=== PATIENT | female | born 1960 | race Caucasian/White ===

== ENCOUNTER 2017-11-19 09:52 | Emergency (ER) | payer OTHER ==
[~2017-11-19] VITALS: Ht 177.8 cm; Wt 64.9 kg
[~2017-11-19 09:52] MED LIST: CENTRUM COMPLE1 EACH PO; CIPROFLOXACIN500 M1 PO; COLACE 100 MG100 MG PO; COUMADIN 5 MG TA5 M1 PO; ENOXAPARIN40 MG/0.1 SUBQ; ENOXAPARIN60 MG/0.1 SUBQ; FERRO-TIME325 MG PO; FERROUS SULFATE PO; IBUPROFEN200 M2 PO; K-DUR 20 MEQ T20 MEQ PO; MAGNESIUM OXID400 MG PO; NOHOMEMEDICATIONS; NORCO 5-325 TA1 EACH PO; ONE DAILY MULT1 EAC2 PO; OS-CAL 500+D C1 EACH PO; PERCOCET 10-321 EACH PO; PHENERGAN 25 MG25 M1 PO; PHENERGAN50 MG RC; POTASSIUM GLUCO99 M1 PO; POTASSIUM20 PO; PRENATAL PO; TRAMADOL 50 MG50 MG PO; TRINATE TABLET1 TAB PO; UNICOMPLEX M TA1 TA1 PO; VITAMIN B-1100 M1 PO; XARELTO20 MG PO; ZOFRAN ODT4 MG PO; ZOFRAN4 MG PO
== END 2017-11-19 11:02 | disposition home or self-care (01) ==
LOC: ER 09:52
DX: S50.312A Abrasion of left elbow, initial encounter (principal); F10.129 Alcohol abuse with intoxication, unspecified; Z86.73 Personal history of transient ischemic attack (TIA), and cerebral infarction without residual deficits; Y04.8XXA Assault by other bodily force, initial encounter; Y92.89 Other specified places as the place of occurrence of the external cause; Y93.89 Activity, other specified; Y99.8 Other external cause status

== ENCOUNTER 2018-01-16 20:07 | Emergency (ER) | payer OTHER ==
[~2018-01-16] VITALS: Ht 175.3 cm; Wt 62.6 kg
== END 2018-01-17 00:08 | disposition home or self-care (01) ==
LOC: ER 20:07
DX: F10.129 Alcohol abuse with intoxication, unspecified (principal); R11.10 Vomiting, unspecified; K70.31 Alcoholic cirrhosis of liver with ascites; Z86.718 Personal history of other venous thrombosis and embolism; Z86.2 Personal history of diseases of the blood and blood-forming organs and certain disorders involving the immune mechanism; Z86.73 Personal history of transient ischemic attack (TIA), and cerebral infarction without residual deficits

== ENCOUNTER 2018-04-22 00:33 | Emergency (ER) | payer OTHER ==
[~2018-04-22] VITALS: Ht 175.3 cm; Wt 63.5 kg
[2018-04-22 01:01] VITALS: BP 122/88
== END 2018-04-22 01:02 | disposition home or self-care (01) ==
LOC: ER 00:33
DX: F10.129 Alcohol abuse with intoxication, unspecified (principal); K70.31 Alcoholic cirrhosis of liver with ascites; Z86.718 Personal history of other venous thrombosis and embolism; Z86.2 Personal history of diseases of the blood and blood-forming organs and certain disorders involving the immune mechanism

== ENCOUNTER 2018-07-02 00:56 | Emergency (ER) | payer OTHER ==
[~2018-07-02] VITALS: Ht 175.3 cm; Wt 61.2 kg
[2018-07-02 01:54] VITALS: BP 130/89
== END 2018-07-02 01:55 | disposition home or self-care (01) ==
LOC: ER 00:56
DX: F10.129 Alcohol abuse with intoxication, unspecified (principal); Z59.0 Homelessness; Z86.718 Personal history of other venous thrombosis and embolism; Z86.2 Personal history of diseases of the blood and blood-forming organs and certain disorders involving the immune mechanism; Z86.73 Personal history of transient ischemic attack (TIA), and cerebral infarction without residual deficits; X31.XXXA Exposure to excessive natural cold, initial encounter

== ENCOUNTER 2018-09-03 21:40 | Emergency (ER) | payer OTHER ==
[~2018-09-03] VITALS: Ht 175.3 cm; Wt 61.2 kg
[2018-09-04 03:14] VITALS: BP 106/56
== END 2018-09-04 03:01 | disposition home or self-care (01) ==
LOC: ER 21:40
DX: F10.129 Alcohol abuse with intoxication, unspecified (principal)

== ENCOUNTER 2018-09-30 02:41 | Emergency (ER) | payer OTHER ==
[~2018-09-30] VITALS: Ht 175.3 cm; Wt 62.6 kg
[2018-09-30 06:06] VITALS: BP 104/65
== END 2018-09-30 06:06 | disposition home or self-care (01) ==
LOC: ER 02:41
DX: F10.129 Alcohol abuse with intoxication, unspecified (principal); Z86.718 Personal history of other venous thrombosis and embolism; Z86.2 Personal history of diseases of the blood and blood-forming organs and certain disorders involving the immune mechanism

== ENCOUNTER 2018-11-07 22:57 | Emergency (ER) | payer OTHER ==
[~2018-11-07] VITALS: Ht 180.3 cm; Wt 81.7 kg
[2018-11-08 05:54] VITALS: BP 98/69
== END 2018-11-08 05:54 | disposition home or self-care (01) ==
LOC: ER 22:57
DX: S01.01XA Laceration without foreign body of scalp, initial encounter (principal); F10.129 Alcohol abuse with intoxication, unspecified; E44.1 Mild protein-calorie malnutrition; Z85.6 Personal history of leukemia; Z86.73 Personal history of transient ischemic attack (TIA), and cerebral infarction without residual deficits; Z86.718 Personal history of other venous thrombosis and embolism; W01.0XXA Fall on same level from slipping, tripping and stumbling without subsequent striking against object, initial encounter; Y93.89 Activity, other specified; Y92.89 Other specified places as the place of occurrence of the external cause; Y99.8 Other external cause status

== ENCOUNTER 2018-11-14 23:28 | Emergency (ER) | payer OTHER ==
[~2018-11-14] VITALS: Ht 170.2 cm; Wt 59.9 kg
[2018-11-15 01:35] VITALS: BP 105/72
== END 2018-11-15 01:37 | disposition home or self-care (01) ==
LOC: ER 23:28
DX: F10.129 Alcohol abuse with intoxication, unspecified (principal); S01.01XD Laceration without foreign body of scalp, subsequent encounter; X58.XXXD Exposure to other specified factors, subsequent encounter

== ENCOUNTER 2018-12-01 22:34 | Emergency (ER) | payer OTHER ==
[~2018-12-01] VITALS: Ht 170.2 cm; Wt 59.0 kg
[2018-12-01 22:39] VITALS: BP 90/51
== END 2018-12-01 23:00 | disposition home or self-care (01) ==
LOC: ER 22:34
DX: F10.129 Alcohol abuse with intoxication, unspecified (principal)

== ENCOUNTER 2018-12-06 22:37 | Emergency (ER) | payer OTHER ==
[~2018-12-06] VITALS: Ht 172.7 cm; Wt 63.5 kg
[2018-12-07 01:54] VITALS: BP 81/45
== END 2018-12-07 01:50 | disposition home or self-care (01) ==
LOC: ER 22:37
DX: F10.129 Alcohol abuse with intoxication, unspecified (principal); Z86.718 Personal history of other venous thrombosis and embolism; Z86.2 Personal history of diseases of the blood and blood-forming organs and certain disorders involving the immune mechanism; Z86.73 Personal history of transient ischemic attack (TIA), and cerebral infarction without residual deficits

== ENCOUNTER 2018-12-24 15:33 | Emergency (ER) | payer OTHER ==
[~2018-12-24] VITALS: Ht 170.2 cm; Wt 58.1 kg
[2018-12-24 18:02] VITALS: BP 120/66
== END 2018-12-24 18:03 | disposition home or self-care (01) ==
LOC: ER 15:33
DX: F10.129 Alcohol abuse with intoxication, unspecified (principal); Z86.718 Personal history of other venous thrombosis and embolism; Z86.711 Personal history of pulmonary embolism

== ENCOUNTER 2019-03-07 17:57 | Emergency (ER) | payer OTHER ==
[~2019-03-07] VITALS: Ht 170.2 cm; Wt 58.1 kg
--- NOTE | ~2019-03-07 | EMS ---
[address] [address] EMS Patient Care Report Name: JAQUELINE MENDES Room #: REG IRENE Aj#: [id number] Admission: 03/07/19 Attend Phys: Discharge: Date of : 62 Report #: [id number] THIS REPORT FOR: //name// Report Transmitted: 03/07/2019 17:07 EMS Care Summary [place], [place] Incident [id number] @ 03/07/2019 17:28 Incident Location [address] [place] [address] Patient JAQUELINE MENDES Female, 59 Years 4750-58-52 Patient Address HOMELESS Patient History Alcohol Abuse, Patient Allergies No known allergies, Patient Medications None Reported, Chief Complaint INTOXICATION Disposition Transported No Lights/[place] Dispatch Reason Unknown Problem/Person Down Transported To [facility] Narrative M28 ARRIVES TO FIND 59 Y/O F PT, INTOXICATED. ASSESSMENTS AND TREATMENTS NOTED. PT AMBULATORY AND MOVES TO COT. PT MOVED TO AMBULANCE. PT TRANSPORTED. M28 ARRIVES AT DESTINATION. PT MOVED TO ROOM IN ED. PT SLIDES FROM COT TO BED IN ROOM. PT CARE TRANSFERRED. M28 RETURNS TO SERVICE. [address] [address] EMS Patient Care Report Name: JAQUELINE MENDES Room #: REG IRENE Aj#: [id number] Admission: 03/07/19 Attend Phys: Discharge: Date of : 62 Report #: [id number] Initial Vitals @17:48P: 84,BP: 112/69,CO: 4,SpO2: 97, @17:40P: 91,R: 18,BP: 112/99,Pain: 0/10,GCS: 15,Glucose: 107,SpO2: 96,Revised Trauma: 12, Assessments @17:41MENTAL:No Abnormalities,SKIN:No Abnormalities,HEENT:Head/Face: No Abnormalities,Eyes: No Abnormalities,Neck/Airway: No Abnormalities,LUNG SOUNDS:General: No Abnormalities,Left Upper: No Abnormalities,Right Upper: No Abnormalities,Left Lower: No Abnormalities,Right Lower: No Abnormalities,ABDOMEN:General: No Abnormalities,Left Upper: No Abnormalities,Right Upper: No Abnormalities,Left Lower: No Abnormalities,Right Lower: No Abnormalities,PELVIS//GI:No Abnormalities,EXTREMITIES:Left Arm: No Abnormalities,Right Arm: No Abnormalities,Left Leg: No Abnormalities,Right Leg: No Abnormalities,PULSE:NEURO:No Abnormalities,@17:36MENTAL:No Abnormalities,SKIN:No Abnormalities,HEENT:Head/Face: No Abnormalities,Eyes: No Abnormalities,Neck/Airway: No Abnormalities,LUNG SOUNDS:General: No Abnormalities,Left Upper: No Abnormalities,Right Upper: No Abnormalities,Left Lower: No Abnormalities,Right Lower: No Abnormalities,ABDOMEN:General: No Abnormalities,Left Upper: No Abnormalities,Right Upper: No Abnormalities,Left Lower: No Abnormalities,Right Lower: No Abnormalities,PELVIS//GI:No Abnormalities,EXTREMITIES:Left Arm: No Abnormalities,Right Arm: No Abnormalities,Left Leg: No Abnormalities,Right Leg: No Abnormalities,PULSE:NEURO:No Abnormalities, Impression Overdose - Alcohol Procedures @17:36ALS AssessmentResponse: UnchangedSucceeded@17:42Saline Lock 150cc (18 ga) Site: Hand-LeftResponse: UnchangedSucceeded Timeline 17:26,Call Received 17:26,Dispatch Notified 17:28,Dispatched 17:28,En Route 17:35,On Scene 17:36,At Patient 17:36,ALS Assessment,Response: UnchangedSucceeded, 17:40,BP: 112/99 M,PULSE: 91,RR: 18 R,SPO2: 96 Ox,ETCO2: ,B,PAIN: 0,GCS: 15, 17:42,Saline Lock 150cc 18 ga Site: Hand-Left,Response: UnchangedSucceeded, 17:48,BP: 112/69 M,PULSE: 84,RR: R,SPO2: 97 Ox,ETCO2: ,BG: ,PAIN: ,GCS: , 17:48,Depart Scene [address] [address] EMS Patient Care Report Name: JAQUELINE MENDES HONG Room #: REG ToñoR.#: [id number] Admission: 03/07/19 Attend Phys: Discharge: Date of : 62 Report #: [id number] 17:59,At Destination 18:05,Call Closed Disclaimer v1.1 Copyright 2019 [employer] This EMS Care Summary contains data elements from the applicable legal record (which may be displayed differently). It is designed to provide pertinent information for the following purposes: continuity of care, clinical quality, and state data reporting. The complete legal record is available to ED staff and administrators of the receiving hospital in ES's Patient Tracker. All data is provided "as is."
[2019-03-08 02:56] VITALS: BP 132/66
== END 2019-03-08 03:55 | disposition home or self-care (01) ==
LOC: ER 17:57
DX: F10.129 Alcohol abuse with intoxication, unspecified (principal); K70.30 Alcoholic cirrhosis of liver without ascites; Z86.711 Personal history of pulmonary embolism; Z86.718 Personal history of other venous thrombosis and embolism; Z86.2 Personal history of diseases of the blood and blood-forming organs and certain disorders involving the immune mechanism; Z86.73 Personal history of transient ischemic attack (TIA), and cerebral infarction without residual deficits; Y90.9 Presence of alcohol in blood, level not specified

== ENCOUNTER 2019-03-26 22:21 | Emergency (ER) | payer OTHER ==
[~2019-03-26] VITALS: Ht 170.2 cm; Wt 77.1 kg
--- NOTE | ~2019-03-26 | EMS ---
[place] [address] EMS Patient Care Report Name: JAQUELINE MENDES Room #: REG Jean Marie#: [id number] Admission: 03/26/19 Attend Phys: Discharge: Date of : 62 Report #: [id number] THIS REPORT FOR: //name// Report Transmitted: 03/26/2019 21:35 EMS Care Summary [place], [place] Incident [id number] @ 03/26/2019 21:38 Incident Location [address] [place] [address] Patient JAQUELINE MENDES Female, 59 Years 1960 [place] [address] Patient History Alcohol Abuse, Patient Allergies No known allergies, Patient Medications None Reported, Chief Complaint INTOXICATED Disposition Transported No Lights/[place] Dispatch Reason Overdose/Poisoning/Ingestion Transported To [facility] Narrative PATIENT FOUND SITTING AT THE BUS STOP UNABLE TO AMBULATE ON HER OWN. PATIENT IS ALERT, APPROPRIATE, SPEAKING IN FULL SENTENCES. PATIENT BECOMING BELLIGERENT WHEN EMS WOULD NOT ALLOW HER TO BRING HER TRASH ONTO THE AMBULANCE. HER SUIT CASE WAS LOADED ONTO THE UNIT . PATIENT ASSISTED TO [place] [address] EMS Patient Care Report Name: JAQUELINE MENDES Room #: REG IRENE Aj#: [id number] Admission: 03/26/19 Attend Phys: Discharge: Date of : 62 Report #: [id number] PATIENT TRANSFERRED TO RN ROOM 2 UPON ARRIVAL Initial Vitals @22:04P: 47,SpO2: 98, @22:08P: 67,R: 18,BP: 133/86,Pain: 0/10,GCS: 15,CO: 0,SpO2: 96,Revised Trauma: 12, @22:04P: 43,R: 18,BP: 157/103,Pain: 0/10,GCS: 14,Glucose: 68,SpO2: 96,Revised Trauma: 12, Assessments @21:52MENTAL:Person Oriented,Time Oriented,Place Oriented,Event Oriented,SKIN:HEENT:Head/Face: No Abnormalities,Eyes: No Abnormalities,Neck/Airway: No Abnormalities,LUNG SOUNDS:ABDOMEN:PELVIS//GI:EXTREMITIES:PULSE:NEURO: Impression Alcohol use Procedures @21:53ALS AssessmentResponse: Unchanged Timeline 21:37,Call Received 21:37,Dispatch Notified 21:38,Dispatched 21:38,En Route 21:51,On Scene 21:51,At Patient 21:53,ALS Assessment,Response: Unchanged 22:04,BP: 157/103 M,PULSE: 43,RR: 18 R,SPO2: 96 Ox,ETCO2: ,B,PAIN: 0,GCS: 14, 22:04,BP: / M,PULSE: 47,RR: R,SPO2: 98 Ox,ETCO2: ,BG: ,PAIN: ,GCS: , 22:06,Depart Scene 22:08,BP: 133/86 M,PULSE: 67,RR: 18 R,SPO2: 96 Ox,ETCO2: ,BG: ,PAIN: 0,GCS: 15, 22:13,At Destination 22:30,Call Closed Disclaimer v1.1 Copyright 2019 [employer] This EMS Care Summary contains data elements from the applicable legal record (which may be displayed differently). It is designed to provide pertinent information for the following purposes: continuity of care, clinical quality, and state data reporting. The complete legal record is available to ED staff and administrators of the receiving hospital in [employer]'s Patient Tracker. All data is provided "as is."
[2019-03-27 05:43] VITALS: BP 136/88
== END 2019-03-27 05:44 | disposition home or self-care (01) ==
LOC: ER 22:21
DX: F10.129 Alcohol abuse with intoxication, unspecified (principal); Z86.2 Personal history of diseases of the blood and blood-forming organs and certain disorders involving the immune mechanism; Z86.73 Personal history of transient ischemic attack (TIA), and cerebral infarction without residual deficits; Z85.6 Personal history of leukemia

== ENCOUNTER 2019-04-04 18:03 | Emergency (ER) | payer OTHER ==
[~2019-04-04] VITALS: Ht 165.1 cm; Wt 68.0 kg
[2019-04-04 22:28] VITALS: BP 87/43
== END 2019-04-04 23:19 | disposition home or self-care (01) ==
LOC: ER 18:03
DX: F10.129 Alcohol abuse with intoxication, unspecified (principal); Z86.2 Personal history of diseases of the blood and blood-forming organs and certain disorders involving the immune mechanism; Z90.89 Acquired absence of other organs; Z86.018 Personal history of other benign neoplasm

== ENCOUNTER 2019-11-14 02:33 | Emergency (ER) | payer OTHER ==
[~2019-11-14] VITALS: Ht 170.2 cm; Wt 63.5 kg
[2019-11-14 07:18] VITALS: BP 118/61
== END 2019-11-14 07:18 | disposition home or self-care (01) ==
LOC: ER 02:33
DX: F10.129 Alcohol abuse with intoxication, unspecified (principal); Z86.73 Personal history of transient ischemic attack (TIA), and cerebral infarction without residual deficits; Y90.9 Presence of alcohol in blood, level not specified

== ENCOUNTER 2019-11-19 11:35 | Emergency (ER) | payer OTHER ==
[~2019-11-19] VITALS: Ht 172.7 cm; Wt 63.5 kg
[2019-11-19] MEDS ORDERED: ASPIR 8181 M1 PO (11:42)
[2019-11-19 12:45] VITALS: BP 106/83
--- NOTE | 2019-11-19 14:08 | EKG ---
[facility] [place] [address] ELECTROCARDIOGRAM REPORT Name: JAQUELINE MENDES [id number] Admission: 11/19/19 Attend Phys: Discharge: 11/19/19 Date of : 62 Report #: [id number] THIS REPORT FOR: cc: Rehan Denise MD, Neal A. MD Couchonnal, Luis F. MD ~ THIS REPORT FOR: //name// [facility] ED Test Date: 2019-11-19 Test Time: 11:44:40 Pat Name: JAQUELINE MENDES Department: Room: Gender: F Physical Damage Appraiser: [facility] : 1960 Requested By: Korina Hernandez Order Number: [id number] : Nadeem Fontenot Measurements Intervals [place] Rate: 74 P: -30 NH: 116 QRS: -1 QRSD: 89 T: 62 QT: 382 QTc: 424 Interpretive Statements Sinus rhythm Borderline short NH interval RSR' in V1 or V2, probably normal variant Compared to ECG 08/02/2016 09:33:54 RSR' in V1 or V2 now present Electronically Signed On 11-19-2019 14:07:56 CDT by Nadeem Fontenot [email or web address] <ELECTRONICALLY SIGNED> By: Nadeem Fontenot MD 11/19/19 1407 1144 1144 Nadeem Fontenot MD /EPI
== END 2019-11-19 12:45 | disposition home or self-care (01) ==
LOC: ER 11:35
DX: F10.129 Alcohol abuse with intoxication, unspecified (principal); I48.91 Unspecified atrial fibrillation; Z71.1 Person with feared health complaint in whom no diagnosis is made; Z79.82 Long term (current) use of aspirin; Z86.718 Personal history of other venous thrombosis and embolism; Z86.711 Personal history of pulmonary embolism; Z86.73 Personal history of transient ischemic attack (TIA), and cerebral infarction without residual deficits; Y90.9 Presence of alcohol in blood, level not specified

== ENCOUNTER 2019-11-25 02:20 | Emergency (ER) | payer OTHER ==
[~2019-11-25] VITALS: Ht 170.2 cm; Wt 55.8 kg
[~2019-11-25 02:20] MED LIST changes: +ASPIR 8181 M1 PO
[2019-11-25 08:17] VITALS: BP 95/68
== END 2019-11-25 08:17 | disposition home or self-care (01) ==
LOC: ER 02:20
DX: F10.129 Alcohol abuse with intoxication, unspecified (principal); I48.91 Unspecified atrial fibrillation; Z86.718 Personal history of other venous thrombosis and embolism; Z86.73 Personal history of transient ischemic attack (TIA), and cerebral infarction without residual deficits; Z79.82 Long term (current) use of aspirin

== ENCOUNTER 2019-12-02 07:19 | Emergency (ER) | payer OTHER ==
[~2019-12-02] VITALS: Ht 170.2 cm; Wt 55.8 kg
[2019-12-02 07:19] VITALS: BP 124/82
== END 2019-12-02 07:57 | disposition home or self-care (01) ==
LOC: ER 07:19
DX: F10.920 Alcohol use, unspecified with intoxication, uncomplicated (principal); R44.1 Visual hallucinations; Z59.9 Problem related to housing and economic circumstances, unspecified; Z86.718 Personal history of other venous thrombosis and embolism; Z86.73 Personal history of transient ischemic attack (TIA), and cerebral infarction without residual deficits; Z85.72 Personal history of non-Hodgkin lymphomas; Z85.6 Personal history of leukemia; Z79.82 Long term (current) use of aspirin

== ENCOUNTER 2019-12-25 16:28 | Emergency (ER) | payer OTHER ==
[~2019-12-25] VITALS: Ht 170.2 cm; Wt 63.5 kg
[2019-12-25 17:16] LABS: ABSOLUTE NEUTROPHILS 2.6 thou/uL (1.4-8.2); EOSINOPHILS 1.9 % (0.0-3.0); HEMATOCRIT 38.3 % (37.0-47.0); HEMOGLOBIN 13.1 gm/dL (12.0-15.0); LYMPHOCYTES 36.1 % (24.0-44.0); MCH 31.2 pg (26.0-34.0); MCHC 34.2 g/dL (28.0-37.0); MCV 91.3 fL (80.0-100.0); MONOCYTES 11.5 % (1.0-8.0); PLATELET COUNT 175 thou/uL (150-400); POLYS 49.5 % (36.0-66.0); RDW 16.1 % (10.5-14.5); WBC 5.3 thou/uL (4.0-11.0)
[2019-12-25 17:27] LABS: ANION GAP 12 mmol/L (7-16); BUN 5 mg/dL (7-18); CALCIUM 8.9 mg/dL (8.5-10.1); CHLORIDE 102 mmol/L (98-107); CO2 27 mmol/L (21-32); CREATININE 1.2 mg/dL (0.6-1.0); GLUCOSE 88 mg/dL (74-106); POTASSIUM 3.3 mmol/L (3.5-5.1); SODIUM 141 mmol/L (136-145)
[2019-12-25 17:35] LABS: ALBUMIN 3.8 g/dL (3.4-5.0); SALICYLATE < 2.8 mg/dL (2.8-20.0); SGOT 77 U/L (15-37); SGPT 41 U/L (30-65); TOTAL BILIRUBIN 0.3 mg/dL (0.2-1.0); TOTAL PROTEIN 7.8 g/dL (6.4-8.2)
[2019-12-25 19:27] LABS: URINE BILIRUBIN NEGATIVE (Negative); URINE BLOOD NEGATIVE (Negative); URINE CLARITY CLEAR; URINE COLOR YELLOW; URINE GLUCOSE-RANDOM* NEGATIVE (Negative); URINE KETONES NEGATIVE (Negative); URINE LEUKOCYTES-REFLEX NEGATIVE (Negative); URINE NITRITE-REFLEX NEGATIVE (Negative); URINE PROTEIN (DIPSTICK) NEGATIVE (Negative); URINE SPECIFIC GRAVITY <= 1.005 (1.005-1.035); URINE UROBILINOGEN 0.2 E.U./dl (0.2-1.0)
[2019-12-25 19:34] LABS: AMP/METHAMP Negative (Negative); BARBITURATES Negative (Negative); BENZODIAZEPINES Negative (Negative); COCAINE Negative (Negative); METHADONE Negative (Negative); OPIATES Negative (Negative); PCP Negative (Negative)
[2019-12-25 21:51] VITALS: BP 100/62
== END 2019-12-25 21:42 | disposition home or self-care (01) ==
LOC: ER 16:28
PROVIDERS: Physician Assistant
DX: F10.120 Alcohol abuse with intoxication, uncomplicated (principal); F32.9 Major depressive disorder, single episode, unspecified; R45.851 Suicidal ideations; Z86.718 Personal history of other venous thrombosis and embolism; Z86.711 Personal history of pulmonary embolism; Z86.73 Personal history of transient ischemic attack (TIA), and cerebral infarction without residual deficits; Y90.8 Blood alcohol level of 240 mg/100 ml or more

== ENCOUNTER 2020-01-25 14:16 | Emergency (ER) | payer OTHER ==
[~2020-01-25] VITALS: Ht 170.2 cm; Wt 63.5 kg
[2020-01-25 22:48] VITALS: BP 127/77
== END 2020-01-25 23:02 | disposition home or self-care (01) ==
LOC: ER 14:16
DX: F10.920 Alcohol use, unspecified with intoxication, uncomplicated (principal); E46 Unspecified protein-calorie malnutrition; Z59.0 Homelessness; Z68.21 Body mass index [BMI] 21.0-21.9, adult; Z86.73 Personal history of transient ischemic attack (TIA), and cerebral infarction without residual deficits; Z86.718 Personal history of other venous thrombosis and embolism; Z86.711 Personal history of pulmonary embolism

== ENCOUNTER 2020-02-08 20:20 | Emergency (ER) | payer OTHER ==
[~2020-02-08] VITALS: Ht 170.2 cm; Wt 68.0 kg
[2020-02-09 06:11] VITALS: BP 120/64
== END 2020-02-09 06:16 | disposition home or self-care (01) ==
LOC: ER 20:20
DX: F10.121 Alcohol abuse with intoxication delirium (principal); Z86.2 Personal history of diseases of the blood and blood-forming organs and certain disorders involving the immune mechanism; Z86.73 Personal history of transient ischemic attack (TIA), and cerebral infarction without residual deficits; Y90.9 Presence of alcohol in blood, level not specified

== ENCOUNTER 2020-04-12 13:38 | Emergency (ER) | payer OTHER ==
[~2020-04-12] VITALS: Ht 170.2 cm; Wt 68.0 kg
[2020-04-12 17:15] VITALS: BP 98/52
== END 2020-04-12 17:21 | disposition home or self-care (01) ==
LOC: ER 13:38
DX: F10.920 Alcohol use, unspecified with intoxication, uncomplicated (principal); Z86.73 Personal history of transient ischemic attack (TIA), and cerebral infarction without residual deficits; Z86.718 Personal history of other venous thrombosis and embolism

== ENCOUNTER 2020-04-15 18:03 | Emergency (ER) | payer OTHER ==
[~2020-04-15] VITALS: Ht 170.2 cm; Wt 68.0 kg
[2020-04-16 01:55] VITALS: BP 110/70
== END 2020-04-16 01:54 | disposition home or self-care (01) ==
LOC: ER 18:03
DX: F10.129 Alcohol abuse with intoxication, unspecified (principal); Z86.2 Personal history of diseases of the blood and blood-forming organs and certain disorders involving the immune mechanism; Z86.73 Personal history of transient ischemic attack (TIA), and cerebral infarction without residual deficits; Y90.9 Presence of alcohol in blood, level not specified

== ENCOUNTER 2020-05-24 00:19 | Emergency (ER) | payer OTHER ==
[~2020-05-24] VITALS: Ht 167.6 cm; Wt 61.2 kg
[2020-05-24 08:36] LABS: CHOLESTEROL 227 mg/dL (<200); HDL CHOLESTEROL 56 mg/dL (>40); LDL CHOLESTEROL 137 mg/dL (<100); TC:HDL 4.1 Ratio (Not establshd); TRIGLYCERIDE 172 mg/dL (<150); VLDL 34 mg/dL (<40)
[2020-05-24] MEDS ORDERED: ACETAMINOPHEN325 M1 PO (11:39)
[2020-05-24] MEDS ORDERED: ASPIR 8181 MG PO (11:39)
[2020-05-24 12:43] VITALS: BP 120/77
[2020-05-24 13:38] VITALS: BP 112/70
--- NOTE | 2020-05-24 13:51 | NUR ---
[facility] REFUSES TO ACCEPT PATIENT AT THIS TIME. PT DISCHARGED AT THIS TIME PER DR FRANKS
== END 2020-05-24 13:38 | disposition home or self-care (01) ==
LOC: ER 00:19 → EROBS 06:17 → ER 06:17
PROVIDERS: Nurse Practitioner Family
DX: G45.9 Transient cerebral ischemic attack, unspecified (principal); F10.129 Alcohol abuse with intoxication, unspecified; R53.1 Weakness; Z86.2 Personal history of diseases of the blood and blood-forming organs and certain disorders involving the immune mechanism; Y90.9 Presence of alcohol in blood, level not specified

== ENCOUNTER 2020-05-27 14:41 | Emergency (ER) | payer OTHER ==
[~2020-05-27] VITALS: Ht 170.2 cm; Wt 53.5 kg
[~2020-05-27 14:41] MED LIST changes: +ACETAMINOPHEN325 M1 PO; +ASPIR 8181 MG PO
[2020-05-27 14:43] VITALS: BP 116/57
[2020-05-27] MEDS ORDERED: NOHOMEMEDICATIONS (15:00)
== END 2020-05-27 19:34 | disposition home or self-care (01) ==
LOC: ER 14:41
DX: F10.929 Alcohol use, unspecified with intoxication, unspecified (principal); Z20.828 Contact with and (suspected) exposure to other viral communicable diseases; Z86.718 Personal history of other venous thrombosis and embolism; Y90.9 Presence of alcohol in blood, level not specified

== ENCOUNTER 2020-06-04 15:18 | Emergency (ER) | payer OTHER ==
[~2020-06-04] VITALS: Ht 170.2 cm; Wt 58.1 kg
[2020-06-04] MEDS ORDERED: ASA81BEC PO (15:26)
[2020-06-04 17:25] VITALS: BP 134/75
--- NOTE | 2020-06-05 07:44 | EKG ---
[address] [address] [place] [address] ELECTROCARDIOGRAM REPORT Name: JAQUELINE MENDES [facility]: [facility] [id number] Admission: 06/04/20 Attend Phys: Discharge: 06/04/20 Date of : 62 Report #: [id number] [facility] ED Test Date: 2020-06-04 Test Time: 16:03:42 Pat Name: JAQUELINE MENDES Department: Room: Gender: F Medicine And Health Service Manager: NORRIS : 1960 Requested By: Jess Ashby Order Number: [id number] MD: Garrick Vallejo Measurements Intervals [place] Rate: 66 P: -35 DE: 114 QRS: 8 QRSD: 116 T: 61 QT: 407 QTc: 427 Interpretive Statements Sinus rhythm Borderline short DE interval Baseline wander in lead(s) V1,V2 Compared to ECG 11/19/2019 11:44:40 No significant change was found Electronically Signed On 06-05-2020 7:43:51 [employer] by Garrick Vallejo [email or web address] <ELECTRONICALLY SIGNED> By: Garrick Vallejo MD, [facility] 06/05/20 0743 1603 02 Garrick Vallejo MD, FACC /EPI
== END 2020-06-04 17:25 | disposition home or self-care (01) ==
LOC: ER 15:18
DX: U07.1 COVID-19 (principal); Z79.82 Long term (current) use of aspirin; Z86.73 Personal history of transient ischemic attack (TIA), and cerebral infarction without residual deficits; Z86.718 Personal history of other venous thrombosis and embolism; Z86.711 Personal history of pulmonary embolism

== ENCOUNTER 2020-06-08 20:00 | Emergency (ER) | payer OTHER ==
[~2020-06-08] VITALS: Ht 170.2 cm; Wt 58.1 kg
[~2020-06-08 20:00] MED LIST changes: +ASA81BEC PO
[2020-06-09 07:05] VITALS: BP 132/60
== END 2020-06-09 07:06 | disposition home or self-care (01) ==
LOC: ER 20:00
DX: F10.129 Alcohol abuse with intoxication, unspecified (principal); Z79.82 Long term (current) use of aspirin; Z86.718 Personal history of other venous thrombosis and embolism; Z86.711 Personal history of pulmonary embolism; Z86.73 Personal history of transient ischemic attack (TIA), and cerebral infarction without residual deficits; Y90.9 Presence of alcohol in blood, level not specified

== ENCOUNTER 2020-06-12 22:02 | Emergency (ER) | payer OTHER ==
[~2020-06-12] VITALS: Ht 175.3 cm; Wt 68.0 kg
[2020-06-13 05:10] VITALS: BP 106/73
== END 2020-06-13 05:13 | disposition home or self-care (01) ==
LOC: ER 22:02
DX: F10.920 Alcohol use, unspecified with intoxication, uncomplicated (principal); R06.89 Other abnormalities of breathing; R26.2 Difficulty in walking, not elsewhere classified; R53.1 Weakness; Z86.73 Personal history of transient ischemic attack (TIA), and cerebral infarction without residual deficits; Z86.718 Personal history of other venous thrombosis and embolism; Z86.711 Personal history of pulmonary embolism; Z85.72 Personal history of non-Hodgkin lymphomas; Z85.6 Personal history of leukemia; Z79.82 Long term (current) use of aspirin

== ENCOUNTER 2020-06-18 22:36 | Emergency (ER) | payer OTHER ==
[~2020-06-18] VITALS: Ht 172.7 cm; Wt 72.6 kg
--- NOTE | ~2020-06-18 | EMS ---
[facility] [address] [place] [address] EMS Patient Care Report Name: JAQUELINE MENDES Room #: REG Jean Marie#: [id number] Admission: 06/18/20 Attend Phys: Discharge: Date of : 62 Report #: [id number] THIS REPORT FOR: //name// Report Transmitted: 06/18/2020 23:10 EMS Care Summary [place], [place] Incident [id number] @ 06/18/2020 22:05 Incident Location [address] [place] [address] Patient JAQUELINE MENDES Female, 60 Years 1960 Patient Address Homeless Patient History Atrial Fibrillation,Alcohol Abuse,Novel Coronavirus (COVID-19), Patient Allergies No known allergies, Patient Medications None Reported, Chief Complaint homeless, sitting out in the cold Disposition Transported No Lights/[place] Dispatch Reason Unknown Problem/Person Down Transported To [facility] Narrative Called for an unknown. Upon arrival, [facility] on the scene. Pt was sitting at a table outside in the cold. She called 911 and said people were going to let her , she appeared intoxicated which is normal for her when she calls. She was moved to the EMS cot and loaded into the ambulance w/o incident. Partial vitals obtained, no BP because she had too much clothing on. en route: no [facility] [address] [place] [address] EMS Patient Care Report Name: JAQUELINE MENDES Room #: REG M.R.#: [id number] Admission: 06/18/20 Attend Phys: Discharge: Date of : 62 Report #: [id number] changes, RR to ER. Arrived: pt placed in a HW bed w/o incident. Pt care & report to ER staff. Initial Vitals @22:43P: 85,R: 16,Pain: 0/10,GCS: 15,SpO2: 98, Assessments @22:26MENTAL:Person Oriented,Time Oriented,Place Oriented,Event Oriented,SKIN:HEENT:LUNG SOUNDS:ABDOMEN:PELVIS//GI:EXTREMITIES:PULSE:Radial: 2+ Normal,NEURO: Impression Alcohol use Procedures @22:26ALS AssessmentResponse: UnchangedSucceeded@22:28StretcherResponse: Unchanged Timeline 22:00,Call Received 22:00,Dispatch Notified 22:05,Dispatched 22:06,En Route 22:25,On Scene 22:26,At Patient 22:26,ALS Assessment,Response: UnchangedSucceeded, 22:28,Stretcher,Response: Unchanged 22:30,Depart Scene 22:33,At Destination 22:43,BP: / M,PULSE: 85,RR: 16 R,SPO2: 98 Ox,ETCO2: ,BG: ,PAIN: 0,GCS: 15, 22:45,Call Closed Disclaimer v1.1 Copyright 2020 [employer] This EMS Care Summary contains data elements from the applicable legal record (which may be displayed differently). It is designed to provide pertinent information for the following purposes: continuity of care, clinical quality, and state data reporting. The complete legal record is available to ED staff and administrators of the receiving hospital in [facility]'s Patient Tracker. All data is provided "as is."
[2020-06-19 08:29] VITALS: BP 00/00
== END 2020-06-19 09:00 | disposition home or self-care (01) ==
LOC: ER 22:36
DX: F10.129 Alcohol abuse with intoxication, unspecified (principal); Z86.718 Personal history of other venous thrombosis and embolism; Z86.73 Personal history of transient ischemic attack (TIA), and cerebral infarction without residual deficits; Z79.82 Long term (current) use of aspirin; Z86.711 Personal history of pulmonary embolism; Y90.9 Presence of alcohol in blood, level not specified

== ENCOUNTER 2020-07-31 16:41 | Emergency (ER) | payer OTHER | END 2020-07-31 19:43 | disposition home or self-care (01) | LOC: ER 16:41 | DX: F10.129 Alcohol abuse with intoxication, unspecified (principal); Z86.73 Personal history of transient ischemic attack (TIA), and cerebral infarction without residual deficits; Z86.2 Personal history of diseases of the blood and blood-forming organs and certain disorders involving the immune mechanism; Z79.82 Long term (current) use of aspirin; Y90.9 Presence of alcohol in blood, level not specified ==

== ENCOUNTER 2020-08-05 14:43 | Emergency (ER) | payer OTHER ==
[~2020-08-05] VITALS: Ht 172.7 cm; Wt 74.8 kg
[2020-08-05 14:45] VITALS: BP 106/68
== END 2020-08-05 16:40 | disposition home or self-care (01) ==
LOC: ER 14:43
DX: F10.129 Alcohol abuse with intoxication, unspecified (principal); Z86.2 Personal history of diseases of the blood and blood-forming organs and certain disorders involving the immune mechanism; Z79.82 Long term (current) use of aspirin; Z59.0 Homelessness; Y90.9 Presence of alcohol in blood, level not specified

== ENCOUNTER → 2020-08-05 | Emergency (ER) | payer OTHER ==
[~2020-08-05] VITALS: Ht 172.7 cm; Wt 63.5 kg
[2020-08-06 06:30] VITALS: BP 134/78
== END ==
LOC: ER 23:05
DX: F10.129 Alcohol abuse with intoxication, unspecified (principal); Z86.2 Personal history of diseases of the blood and blood-forming organs and certain disorders involving the immune mechanism; Z86.73 Personal history of transient ischemic attack (TIA), and cerebral infarction without residual deficits; Z79.82 Long term (current) use of aspirin; Y90.9 Presence of alcohol in blood, level not specified

== ENCOUNTER → 2020-10-04 | Emergency (ER) | payer OTHER ==
[~2020-10-04] VITALS: Ht 170.2 cm; Wt 63.5 kg
[2020-10-05 06:00] VITALS: BP 142/72
== END ==
LOC: ER 21:46
DX: F10.920 Alcohol use, unspecified with intoxication, uncomplicated (principal); R47.81 Slurred speech; Z86.73 Personal history of transient ischemic attack (TIA), and cerebral infarction without residual deficits; Z86.718 Personal history of other venous thrombosis and embolism; Z86.711 Personal history of pulmonary embolism; Z79.82 Long term (current) use of aspirin; Y90.8 Blood alcohol level of 240 mg/100 ml or more

== ENCOUNTER 2020-10-15 22:31 | Emergency (ER) | payer OTHER ==
[~2020-10-15] VITALS: Ht 157.5 cm; Wt 54.4 kg
[2020-10-16 00:01] VITALS: BP 96/57
== END 2020-10-16 03:02 ==
LOC: ER 22:31
DX: F10.920 Alcohol use, unspecified with intoxication, uncomplicated (principal); Z86.718 Personal history of other venous thrombosis and embolism; Z86.711 Personal history of pulmonary embolism; Z86.73 Personal history of transient ischemic attack (TIA), and cerebral infarction without residual deficits; Z79.82 Long term (current) use of aspirin

== ENCOUNTER 2020-10-22 09:24 | Emergency (ER) | payer OTHER ==
[~2020-10-22] VITALS: Ht 170.2 cm; Wt 55.8 kg
[2020-10-22 15:19] VITALS: BP 113/75
== END 2020-10-22 15:20 | disposition home or self-care (01) ==
LOC: ER 09:24
DX: F10.129 Alcohol abuse with intoxication, unspecified (principal); Z86.2 Personal history of diseases of the blood and blood-forming organs and certain disorders involving the immune mechanism; Z98.890 Other specified postprocedural states; Z59.0 Homelessness; Y90.9 Presence of alcohol in blood, level not specified

== ENCOUNTER 2020-11-09 12:51 | Emergency (ER) | payer OTHER ==
[~2020-11-09] VITALS: Ht 167.6 cm; Wt 63.5 kg
--- NOTE | ~2020-11-09 | EMS ---
[facility] [address] [place] [address] EMS Patient Care Report Name: JAQUELINE MENDES Room #: REG IRENE Aj#: [id number] Admission: 11/09/20 Attend Phys: Discharge: Date of : 62 Report #: [id number] THIS REPORT FOR: //name// Report Transmitted: 11/09/2020 12:07 EMS Care Summary [place], [place] Incident [id number] @ 11/09/2020 12:18 Incident Location [address] [place] [address] / [place] [address] Patient JAQUELINE MENDES Female, 60 Years 1960 Patient Address Homeless Patient History Atrial Fibrillation,Alcohol Abuse,Novel Coronavirus (COVID-19), Patient Allergies No known allergies, Patient Medications None Reported, Chief Complaint ETOH, passed out on trail, low BGL Disposition Transported No Lights/[place] Dispatch Reason Unknown Problem/Person Down Transported To [facility] Narrative M528 responded immediately to the scene of an Unknown. Staged in area until [facility] reported scene as secure. Upon arrival, pt found alert to painful stimuli and lying in the grass. Bystanders called in subject after she reportedly asked for an ambulance. Pt is [facility] [address] [place] [address] EMS Patient Care Report Name: JAQUELINE MENDES Room #: REG Jean Marie#: [id number] Admission: 11/09/20 Attend Phys: Discharge: Date of : 62 Report #: [id number] well known to EMS and PD with multiple contacts previously. She has strong odor of ETOH on her person with multiple empty beer cans next to her. Cot next to pt and she is lifted onto cot. Secured on via straps, rails up, then moved to back of ambulance. Vitals established. D-stick showing 51mg/dl. Due to pt's AMS and only alert to pain, 20g saline lock secured and 125mL D10 administered. Transport to then initiated. Contacted with 2-3 minute ETA, and report given. Pt remains stable but doesn't become more alert after D10. Vitals monitored and repeat D-stick showing BGL back WNL. Arrived at and pt to ER 01. Report to RN then care released. Initial Vitals @12:42P: 89,R: 14,BP: 108/63,Pain: 0/10,GCS: 11,Glucose: 133,CO: 5,SpO2: 96,Revised Trauma: 11, @12:35P: 102,R: 15,BP: 96/66,Pain: 0/10,GCS: 12,Glucose: 51,CO: 2,SpO2: 95,Revised Trauma: 11, Assessments @12:34MENTAL:Confused,Person Oriented,SKIN:HEENT:LUNG SOUNDS:ABDOMEN:PELVIS//GI:EXTREMITIES:Left Leg: Weakness,Right Leg: Weakness,Left Arm: No Abnormalities,Right Arm: No Abnormalities,PULSE:Radial: 2+ Normal,NEURO: Impression Alcohol use Procedures @12:34ALS AssessmentResponse: UnchangedSucceeded@12:38Saline Lock 5cc (20 ga) Site: Hand-LeftResponse: UnchangedSucceeded@12:40Dextrose 10% - 125 Milliliters (ml) - Intravenous (IV)Response: Unchanged Timeline 12:17,Call Received 12:17,Dispatch Notified 12:18,Dispatched 12:19,En Route 12:28,On Scene 12:29,At Patient 12:34,ALS Assessment,Response: UnchangedSucceeded, 12:35,BP: 96/66 M,PULSE: 102,RR: 15 R,SPO2: 95 Ox,ETCO2: ,B,PAIN: 0,GCS: 12, 12:38,Saline Lock 5cc 20 ga Site: Hand-Left,Response: UnchangedSucceeded, 12:40,Dextrose 10% - 125 Milliliters (ml) - Intravenous (IV),Response: Unchanged 12:42,BP: 108/63 M,PULSE: 89,RR: 14 R,SPO2: 96 Ox,ETCO2: ,B,PAIN: 0,GCS: [place] [address] EMS Patient Care Report Name: JUDRUSTYJAQUELINE Room #: SAMANTHA Aj#: [id number] Admission: 11/09/20 Attend Phys: Discharge: Date of : 62 Report #: [id number] 11, 12:42,Depart Scene 12:47,At Destination 13:00,Call Closed Disclaimer v1.1 Copyright 2020 [employer] This EMS Care Summary contains data elements from the applicable legal record (which may be displayed differently). It is designed to provide pertinent information for the following purposes: continuity of care, clinical quality, and state data reporting. The complete legal record is available to ED staff and administrators of the receiving hospital in ES's Patient Tracker. All data is provided "as is."
[2020-11-09 19:17] VITALS: BP 108/74
== END 2020-11-09 19:18 | disposition home or self-care (01) ==
LOC: ER 12:51
DX: F10.129 Alcohol abuse with intoxication, unspecified (principal); Z79.82 Long term (current) use of aspirin

== ENCOUNTER 2020-12-30 23:22 | Emergency (ER) | payer OTHER ==
[~2020-12-30] VITALS: Ht 165.1 cm; Wt 59.0 kg
--- NOTE | ~2020-12-30 | EMS ---
[address] [address] EMS Patient Care Report Name: JAQUELINE MENDES Room #: DEP IRENE Aj#: [id number] Admission: 12/30/20 Attend Phys: Discharge: 12/31/20 Date of : 62 Report #: [id number] THIS REPORT FOR: //name// Report Transmitted: 01/01/2021 14:26 EMS Care Summary [place], [place] Incident [id number] @ 12/30/2020 22:47 Incident Location [address] [place] [id number] Patient JAQUELINE MENDES Female, 60 Years 1960 Patient Address Homeless Patient History Atrial Fibrillation,Alcohol Abuse,Novel Coronavirus (COVID-19), Patient Allergies No known allergies, Patient Medications None Reported, Chief Complaint etoh intox Disposition Transported No Lights/[place] Dispatch Reason Unknown Problem/Person Down Transported To [facility] Narrative Arrived to find pt laying on bench outside of [facility]. Pt had 2 gallons of vodka and orange soda. Pt has very slurred speech and is unable to sit up on her own well or stand at all. Pt is lifted onto cot and secured with cot straps. Pt mask moved from her chin to over her mouth. Pt transported without incident. Care to RN. [facility] [address] [place] [address] EMS Patient Care Report Name: JAQUELINE MENDES Room #: DEP [facility]#: [id number] Admission: 12/30/20 Attend Phys: Discharge: 12/31/20 Date of : 62 Report #: [id number] Initial Vitals @23:14P: 86,BP: 98/66,CO: 9,SpO2: 96, @23:12P: 88,R: 16,BP: 96/61,Pain: 0/10,GCS: 15,Glucose: 105,Revised Trauma: 12, Assessments @23:07MENTAL:Time Oriented,Event Oriented,Person Oriented,Place Oriented,SKIN:HEENT:Head/Face: No Abnormalities,Eyes: No Abnormalities,Neck/Airway: No Abnormalities,LUNG SOUNDS:General: No Abnormalities,Left Upper: No Abnormalities,Right Upper: No Abnormalities,Left Lower: No Abnormalities,Right Lower: No Abnormalities,ABDOMEN:General: No Abnormalities,Left Upper: No Abnormalities,Right Upper: No Abnormalities,Left Lower: No Abnormalities,Right Lower: No Abnormalities,PELVIS//GI:EXTREMITIES:Left Arm: No Abnormalities,Right Arm: No Abnormalities,Left Leg: No Abnormalities,Right Leg: No Abnormalities,PULSE:NEURO:Slurred Speech, Impression Overdose - Alcohol Procedures @23:07ALS AssessmentResponse: UnchangedSucceeded Timeline 22:46,Call Received 22:46,Dispatch Notified 22:47,Dispatched 22:48,En Route 23:05,On Scene 23:06,At Patient 23:07,ALS Assessment,Response: UnchangedSucceeded, 23:12,BP: 96/61 M,PULSE: 88,RR: 16 R,SPO2: Ox,ETCO2: ,B,PAIN: 0,GCS: 15, 23:14,BP: 98/66 M,PULSE: 86,RR: R,SPO2: 96 Ox,ETCO2: ,BG: ,PAIN: ,GCS: , 23:14,Depart Scene 23:28,At Destination 23:30,Call Closed Disclaimer v1.1 Copyright 2020 [employer] This EMS Care Summary contains data elements from the applicable legal record (which may be displayed differently). It is designed to provide pertinent information for the following purposes: continuity of care, clinical quality, and state data reporting. The complete legal record is available to ED staff and administrators of the receiving hospital in [employer]'s Patient Tracker. All data is provided "as is."
[2020-12-31 09:50] VITALS: BP 118/52
== END 2020-12-31 09:52 | disposition home or self-care (01) ==
LOC: ER 23:22
DX: F10.129 Alcohol abuse with intoxication, unspecified (principal); K74.60 Unspecified cirrhosis of liver; Z79.82 Long term (current) use of aspirin